=== PATIENT | female | born 1985 | race Caucasian/White ===

== ENCOUNTER 2016-07-31 18:59 | Emergency (ER) | payer SELFPAY ==
[~2016-07-31] VITALS: Ht 172.7 cm; Wt 88.0 kg
[~2016-07-31 18:59] MED LIST: HYDR-2768 PO; METO200T3 PO
[2016-07-31 19:03] VITALS: BP 136/94; PULSE 100; RESP 16; TEMP 98.4; O2SAT 99
[2016-07-31] MEDS ORDERED: METO200T3 PO (20:57)
[2016-07-31] MEDS ORDERED: METO100T9 PO (20:57)
[2016-07-31] MEDS ORDERED: HYDR25TA5 PO (20:57)
--- NOTE | 2016-07-31 21:24 | PD ---
HPI Chief Complaint: Abdominal Pain Time Seen by Provider: 21:24 Travel History International Travel<30 days: No Contact w/Intl Traveler<30days: No Traveled to known affect area: No History of Present Illness HPI 31-year-old female came to the emergency room with history of epigastric pain past 8 days radiating to both sides. Patient says the pain gets worse when she tries to eat something. She has been hungry but every time she tries to eat something it feels like it stuck which makes the pain worsen. Sometimes she will vomit and sometimes she just has to wait till the pain subsides. Since is not getting better she decided to come to the emergency room. No history of diarrhea. In fact she has been somewhat constipated. No history of fever or chills. She has history of SVT and hypertension and taking medications for those. Patient was slightly tachycardic in triage. [facility] Past Medical History Narrative Medical List of her past medical, surgical, social and family history has been reviewed from the nursing note. Heart Rhythm Problems: Yes (svt ) Cardiovascular Problems: Yes (HTN,SVT) High Cholesterol: Yes Diabetes: No Diminished Hearing: No Hypertension: Yes Immunizations Current: Yes ?: Not LMP: 07-21-16 : 0 Past Surgical History Tonsillectomy: Yes Social History Alcohol Use: No Tobacco Use: Yes (3/4 PACK A DAY) Substance Use: No Allergies-Medications (Allergen,Severity, Reaction): Coded Allergies: No Known Allergies (Verified , 07/31/16) Comments No known drug allergies. Reported Meds & Prescriptions Reported Meds & Active Scripts Active Zofran Odt (Ondansetron Odt) 4 Mg Tab 4 Mg SL Q6HR PRN Carafate (Sucralfate) 1 Gm Tab 1 Gm PO TID On empty stomach Protonix (Pantoprazole Sodium) 40 Mg Tab 40 Mg PO DAILY Reported Hydrochlorothiazide 25 Mg Tab 25 Mg PO DAILY Metoprolol Succinate ER 24 HR (Metoprolol Succinate) 100 Mg Tab 100 Mg PO HS Metoprolol Succinate ER 24 HR (Metoprolol Succinate) 200 Mg Tab 200 Mg PO DAILY Narrative Medication List of her home medications reviewed from the nursing note. Review of Systems Except as stated in HPI: all other systems reviewed are Neg Physical Exam Narrative GENERAL: Awake, alert, anxious, obese SKIN: Focused skin assessment warm/dry. HEAD: Atraumatic. Normocephalic. EYES: Pupils equal and round. No scleral icterus. No injection or drainage. ENT: No nasal bleeding or discharge. Mucous membranes pink and moist. NECK: Trachea midline. No JVD. CARDIOVASCULAR: Regular rate and rhythm. No murmur appreciated. RESPIRATORY: No accessory muscle use. Clear to auscultation. Breath sounds equal bilaterally. GASTROINTESTINAL: Abdomen soft, tenderness in the epigastric area on deep palpation, nondistended. Hepatic and splenic margins not palpable. MUSCULOSKELETAL: No obvious deformities. No clubbing. No cyanosis. No edema. NEUROLOGICAL: Awake and alert. No obvious cranial nerve deficits. Motor grossly within normal limits. Normal speech. PSYCHIATRIC: Appropriate mood and affect; insight and judgment normal. Data Data Last Documented VS Vital Signs Date Time Temp Pulse Resp B/P Pulse Ox O2 Delivery O2 Flow Rate FiO2 07/31/16 22:17 16 100 Room Air 07/31/16 19:03 98.4 100 136/94 Orders Electrocardiogram (07/31/16 21:34) Ckmb (Isoenzyme) Profile (07/31/16 21:34) Complete Blood Count With Diff (07/31/16 21:34) Comprehensive Metabolic Panel (07/31/16 21:34) Magnesium (Mg) (07/31/16 21:34) Troponin I (07/31/16 21:34) Lipase (07/31/16 21:34) Chest, Single Ap (07/31/16 21:34) Ecg Monitoring (07/31/16 21:34) Bilateral Bp Monitoring (07/31/16 21:34) Iv Access Insert/Monitor (07/31/16 21:34) Oximetry (07/31/16 21:34) Oxygen Administration (07/31/16 21:34) Sodium Chloride 0.9% Flush (Ns Flush) (07/31/16 21:45) Sodium Chlorid 0.9% 500 Ml Inj (Ns 500 M (07/31/16 21:45) Pantoprazole Inj (Protonix Inj) (07/31/16 21:45) Ct Abd/Pel W/O Iv Contrast (07/31/16 ) Urinalysis - C+S If Indicated (07/31/16 21:34) CKMB (07/31/16 23:25) CKMB% (07/31/16 23:25) Labs Laboratory Tests Test 07/31/16 07/31/16 07/31/16 21:45 22:05 23:25 Urine Color LIGHT-YELLOW Urine Turbidity CLEAR Urine pH 5.5 Urine Specific [place] 1.007 Urine Protein NEG mg/dL Urine Glucose (UA) NEG mg/dL Urine Ketones NEG mg/dL Urine Occult Blood NEG Urine Nitrite NEG Urine Bilirubin NEG Urine Urobilinogen LESS THAN 2.0 MG/DL Urine Leukocyte Esterase SMALL Urine RBC 1 /hpf Urine WBC 1 /hpf Urine Squamous Epithelial 4 /hpf Cells Microscopic Urinalysis Comment CULT NOT INDICATED White Blood Count 13.2 TH/MM3 Red Blood Count 4.95 MIL/MM3 Hemoglobin 14.9 GM/DL Hematocrit 42.7 % Mean Corpuscular Volume 86.3 FL Mean Corpuscular Hemoglobin 30.1 PG Mean Corpuscular Hemoglobin 35.0 % Concent Red Cell Distribution Width 12.7 % Platelet Count 420 TH/MM3 Mean Platelet Volume 8.9 FL Neutrophils (%) (Auto) 60.2 % Lymphocytes (%) (Auto) 32.6 % Monocytes (%) (Auto) 5.3 % Eosinophils (%) (Auto) 1.5 % Basophils (%) (Auto) 0.4 % Neutrophils # (Auto) 8.0 TH/MM3 Lymphocytes # (Auto) 4.3 TH/MM3 Monocytes # (Auto) 0.7 TH/MM3 Eosinophils # (Auto) 0.2 TH/MM3 Basophils # (Auto) 0.1 TH/MM3 CBC Comment DIFF FINAL Differential Comment Sodium Level 141 MEQ/L Potassium Level 4.7 MEQ/L Chloride Level 106 MEQ/L Carbon Dioxide Level 25.3 MEQ/L Anion Gap 10 MEQ/L Blood Urea Nitrogen 8 MG/DL Creatinine 0.72 MG/DL Estimat Glomerular Filtration 94 ML/MIN Rate Random Glucose 73 MG/DL Calcium Level 8.8 MG/DL Magnesium Level 2.1 MG/DL Total Bilirubin 0.4 MG/DL Aspartate Amino Transf 40 U/L (AST/SGOT) Alanine Aminotransferase 33 U/L (ALT/SGPT) Alkaline Phosphatase 68 U/L Total Creatine Kinase 196 U/L Creatine Kinase MB LESS THAN 0.5 NG/ML Creatine Kinase MB % 0.3 % Troponin I LESS THAN 0.02 NG/ML Total Protein 7.2 GM/DL Albumin 3.3 GM/DL Lipase 179 U/L MDM Medical Decision Making Medical Screen Exam Complete: Yes Emergency Medical Condition: Yes Medical Record Reviewed: Yes Interpretation(s) Twelve-lead EKG was reviewed by me. Normal sinus rhythm, normal axis, nonspecific ST-T wave changes. Heart rate of 89 bpm. Differential Diagnosis Acute pancreatitis, acute gastritis, acute cholecystitis, esophagitis Narrative Course 12:30 AM blood test results came back. Her white count was slightly elevated. Chemistry was within acceptable limits. CAT scan was negative. I had given her IV Protonix. I had a long discussion with the patient. She said she was frustrated because this pain has really interfered with her lifestyle since she can barely eat. I recommended that she should take the medications that are given for prescription and if she doesn't feel better should have her primary care for her to a GI specialist because she might require endoscopy. I also mentioned that I would give her the name of our GI specialist was agronomy advisor and she could try calling him directly to get an appointment. Patient however says she does not have an insurance and it would be expensive for her to get endoscopy. I educated her about diet restrictions as well. I will discharge her home. Procedures EKG Prior to Arrival: No Diagnosis Primary Impression: Gastritis Qualified Code: K29.00 - Acute gastritis without hemorrhage, unspecified gastritis type Additional Impression: Esophagitis Referrals: Alis Marie MD 2 days Additional Instructions: Please follow-up with your primary care in couple days. You can also try calling the GI specialist's name and number been given to you to see if they can see you. Patient has been the prescription direction. Try to avoid foods with high acid contents like lemon, strawberries, tomato etc. please return to the ER if the condition worsens or any other new concerns. Med/Other Pt SpecificInfo: Prescription(s) given Scripts Ondansetron Odt (Zofran Odt)4 Mg Tab4 Mg SL Q6HR PRN (Nausea/Vomiting) #15 TAB Ref 0 Prov:Maribel Estrada MD 08/01/16 Sucralfate (Carafate)1 Gm Tab1 Gm PO TID #90 TAB Ref 0 On empty stomach Prov:Maribel Estrada MD 08/01/16 Pantoprazole (Protonix)40 Mg Tab40 Mg PO DAILY #30 TAB Ref 0 Prov:Maribel Estrada MD 08/01/16 Disposition: 01 DISCHARGE HOME Condition: Stable Maribel Estrada MD Jul 31, 2016 21:24
[2016-07-31] MEDS ORDERED: PANTOPRAZOLE SODIUM 40 MG VIAL IV PUSH ONE (21:45)
[2016-07-31] MEDS ORDERED: SODIUM CHLORIDE 0.9% FLUSH 10 ML FLUSH IVF PRN (21:45)
[2016-07-31] MEDS ORDERED: SODIUM CHLORID 0.9% 500 ML INJ 500 ML IV ONE (21:45)
[2016-07-31 21:59] LABS: BLOOD, URINE NEG (NEG); COMMENT (UR) CULT NOT INDICATED; CULTURE IF INDICATED CULT NOT INDICATED; GLUCOSE,URINE NEG (NEG); KETONE, URINE NEG (NEG); NITRITE,URINE NEG (NEG); PH, URINE 5.5 (5.0-8.5); SQUAMOUS EPITHELIAL CELL URINE 4 /hpf (0-5); URINE COLOR LIGHT-YELLOW (YELLW/STRAW)
--- NOTE | 2016-07-31 22:04 | RADRPT ---
EXAM DATE/TIME: 07/31/2016 21:46 [facility] COMPARISON: CHEST SINGLE AP, November 18, 2015, 2:57. INDICATIONS : Chest pain. Nausea and vomiting for the past eight days. MEDICAL HISTORY : Hypertension. SURGICAL HISTORY : None. ENCOUNTER: Initial ACUITY: 1 week PAIN SCORE: 5/10 LOCATION: Bilateral chest FINDINGS: A single view of the chest demonstrates the lungs to be symmetrically aerated without evidence of mas s, infiltrate or effusion. The cardiomediastinal contours are unremarkable. Osseous structures are intact.CONCLUSION: No acute disease. Orlando Bishop MD FACR on July 31, 2016 at 22:03 Board Certified Radiologist. This report was verified electronically.
--- NOTE | 2016-07-31 22:07 | RADRPT ---
EXAM DATE/TIME: 07/31/2016 21:48 [facility] COMPARISON: No previous studies available for comparison. INDICATIONS : Abdomen pain past 8 days. ORAL CONTRAST: No oral contrast ingested. RADIATION DOSE: 17.03 CTDIvol (mGy) MEDICAL HISTORY : Cardiovascular disease. Hypertension. Carcinoma, breast. SURGICAL HISTORY : Mastectomy, right. ENCOUNTER: Initial ACUITY: 1 week PAIN SCALE: 8/10 LOCATION: Bilateral abdomen TECHNIQUE: Volumetric scanning of the abdomen and pelvis was performed. Using automated exposure control and ad justment of the mA and/or kV according to patient size, radiation dose was kept as low as reasonably achievable to obtain optimal diagnostic quality images. FINDINGS: LOWER LUNGS: The visualized lower lungs are clear. LIVER: Homogeneous density without lesion. There is no dilation of the biliary tree. No calcified gallston es. SPLEEN: Normal size without lesion. PANCREAS: Within normal limits. KIDNEYS: Normal in size and shape. There is no mass, stone, or hydronephrosis. ADRENAL GLANDS: Within normal limits. VASCULAR: There is no aortic aneurysm. BOWEL/MESENTERY: The stomach, small bowel, and colon demonstrate no acute abnormality. There is no free intraperitone al air or fluid. ABDOMINAL WALL: Within normal limits. RETROPERITONEUM: There is no lymphadenopathy. BLADDER: No wall thickening or mass. REPRODUCTIVE: Within normal limits. INGUINAL: There is no lymphadenopathy or hernia. MUSCULOSKELETAL: Within normal limits for patient age. CONCLUSION: Negative. I do not see an etiology for patient's abdominal pain. There is no acute pancreatitis, re nal stone or appendicitis. There are no diverticula identified.. Orlando Bishop MD FACR on July 31, 2016 at 22:04 Board Certified Radiologist. This report was verified electronically.
[2016-07-31 22:17] VITALS: RESP 16; O2SAT 100
[2016-07-31 22:40] LABS: BASOPHIL # 0.1 TH/MM3 (0-0.2); BASOPHIL % 0.4 % (0.0-2.0); EOSINOPHIL # 0.2 TH/MM3 (0-0.4); EOSINOPHIL % 1.5 % (0.0-4.0); HEMATOCRIT 42.7 % (35.0-46.0); HEMO FLAGS DIFF FINAL; LYMPH % 32.6 % (9.0-44.0); LYMPHOCYTE # 4.3 TH/MM3 (1.0-4.8); MEAN CELL VOLUME 86.3 FL (80.0-100.0); MEAN CORPUSCULAR HEMOGLOBIN 30.1 PG (27.0-34.0); MONO % 5.3 % (0.0-8.0); NEUT % 60.2 % (16.0-70.0); PLATELET COUNT 420 TH/MM3 (150-450); RED BLOOD COUNT 4.95 MIL/MM3 (4.00-5.30); RED CELL DISTRIBUTION WIDTH 12.7 % (11.6-17.2); WHITE BLOOD COUNT 13.2 TH/MM3 (4.0-11.0)
[2016-08-01 00:07] LABS: ALKALINE PHOSPHATASE 68 U/L (45-117); ALT (GPT) 33 U/L (10-53); ANION GAP 10 MEQ/L (5-15); AST (GOT) 40 U/L (15-37); BICARBONATE 25.3 MEQ/L (21.0-32.0); BLOOD UREA NITROGEN 8 MG/DL (7-18); CHLORIDE 106 MEQ/L (98-107); CREATINE KINASE 196 U/L (26-192); GLOMERULAR FILTRATION RATE 94 ML/MIN (>89); MAGNESIUM 2.1 MG/DL (1.5-2.5); POTASSIUM 4.7 MEQ/L (3.5-5.1); SODIUM (NA) 141 MEQ/L (136-145); TOTAL BILIRUBIN ADULT 0.4 MG/DL (0.2-1.0)
[2016-08-01 00:20] LABS: CKMB LESS THAN 0.5 NG/ML (0.5-3.6)
[2016-08-01] MEDS ORDERED: ZOFR4TAB3 SL (00:24)
[2016-08-01] MEDS ORDERED: CARA1TAB6 PO (00:24)
[2016-08-01] MEDS ORDERED: PROT40TA PO (00:24)
--- NOTE | 2016-08-01 11:38 | EKG ---
Date Performed: 07/31/2016 Time Performed: 22:16:23 PTAGE: 31 years EKG: Sinus rhythm LOW QRS VOLTAGE IN PRECORDIAL LEADS POSSIBLE RIGHT VENTRICULAR CONDUCTION DELAY BORDERLINE ECG PREVIOUS TRACING : 11/18/2015 03.44 DOCTOR: Davon Devi Interpretating Date/Time 08/01/2016 11:35:08
== END 2016-08-01 00:35 | disposition home or self-care (01) ==
LOC: NEPD 18:59
DX: K29.00 Acute gastritis without bleeding (principal); K20.9 Esophagitis, unspecified; I10 Essential (primary) hypertension; F17.200 Nicotine dependence, unspecified, uncomplicated; Z79.899 Other long term (current) drug therapy
CPT/HCPCS: 71010; 74176; 80053; 81001; 82550; 82552; 83690; 83735; 84484; 85025; 93005; 96361; 96374; 99284; C9113; J7040